=== PATIENT | male | born 1940 | race Caucasian/White ===

== ENCOUNTER 2020-07-25 06:13 | Day surgery (SDC) | payer MEDICARE, BC, SELFPAY ==
[2020-07-25 06:24] VITALS: BP 109/65; PULSE 52; RESP 16; TEMP 36.3; O2SAT 96
[2020-07-25] MEDS: Lactated Ringers 1,000 ML 80 ML IV (06:52)
[2020-07-25] MEDS: ceFAZolin 1 GM/50 ML BAG IVPB (07:24)
[2020-07-25] MEDS: Bupivacaine 0.5% Pres-Free 30 ML VIAL (07:25)
[2020-07-25] MEDS: Dexamethasone 4 MG/ML VIAL (08:00)
--- NOTE | 2020-07-25 08:20 | PDOC.DSDIS_ITS ---
Discharge Plan Disposition Patient Disposition: HOME Condition: Good Discharge Details Reason For Visit: arthrodesis left 2nd toe Attending Provider: Rubio Hebert Primary Care Provider: Chato Charles [place] Meds and New Rx's Prescriptions: New hydrocodone-acetaminophen [[place]] 5-325 mg tablet 1 tab PO Q6H PRN (Reason: pain) Qty: 7 RF: 0 ibuprofen 600 mg tablet 600 mg PO Q6H PRN (Reason: pain and inflamation) Qty: 40 RF: 1 Continued losartan 50 MG tablet 50 mg PO QAM RF: 0 aspirin [Aspir-81] 81 MG tablet,delayed release (DR/EC) 81 mg PO DAILY RF: 0 levothyroxine 100 MCG tablet 100 mcg PO DAILY@0730 RF: 0 ibuprofen 200 MG tablet 200 mg PO DAILY RF: 0 omeprazole 20 MG capsule,delayed release(DR/EC) 20 mg PO DAILY@0730 RF: 0 oxybutynin chloride 5 MG tablet 5 mg PO DAILY RF: 0 multivitamin 1 EACH capsule 1 ea PO DAILY RF: 0 atenolol [Tenormin] 50 MG tablet 50 mg PO DAILY RF: 0 Discharge Instructions Activity:: Activity as Tolerated Remove Dressings/Wound Care:: Do Not Remove Shower/Bathe:: Cover Diet:: Normal Diet Discharge Orders Discharge Orders: Discharge Order (Routine); Ordered 07/25/20 Ordered By: Rubio Hebert DS: Diagnosis Discharge Diagnosis (1) Other hammer toe(s) (acquired), left foot: Status: Acute
--- NOTE | 2020-07-25 08:27 | W.PM.OP ---
Date of service: 07/25/20 Time of Service: 08:28 Operative Note Operative Note DATE OF PROCEDURE: 07/25/20 PRE-OP DIAGNOSIS: hammertoe left 2nd POST-OP DIAGNOSIS: same PROCEDURE: arthrodesis left 2nd toe SURGEON: Rubio Hebert ANESTHESIA: local ESTIMATED BLOOD LOSS: 1 PATHOLOGY: none sent COMPLICATIONS: None Patient was transported to: same day Patient's condition: stable Implants: 0.062 k-wire Indications: 80-year-old male with pain associated with a left second hammertoe that has not responded well to nonoperative treatments. Pain is experienced daily interfering with shoe gear and ambulation. He is being brought to the OR for surgical repair of his left second hammertoe. He understands risk and complications of surgery pertaining to pain, scarring, infection, recurrence of deformity, shortening of the digit. Nonunion, malunion, delayed union the potential to remove the hardware. No promises made to final outcome of surgery. Informed consents been obtained. Procedure Description: Hwang brought to the operative suite placed in the supine position with the left foot prepped and draped in the usual sterile podiatric fashion. Timeout was performed by protocol. Attention was directed to the left foot, second toe. The second toe was anesthetized with 8 cc of a 50: 50 mixture 1% lidocaine with epinephrine, 0.5% Marcaine plain. Attention was directed to the distal interphalangeal joint with 2 converging semielliptical incisions were placed horizontally over the DIPJ. The skin wedge was removed. Soft tissue mobilization and undermining was performed. With a #15 scalpel a capsulotomy was performed dorsally at the DIPJ level and the medial lateral collateral was released. The extensor tendon was lifted from both sides of the joint. With power instrumentation the articular surface was removed from both sides of the joint. A small wedge was removed from the head of the proximal head of the middle phalanx so as to correct for the transverse plane deformity. Good correction was appreciated. All rough and bony edges were rasped smooth. Copious irrigation was performed. Internal fixation was achieved utilizing a 0.062 K wire. The extensor tendon was repaired with simple interrupted suture 4-0 Vicryl. The skin was repaired with simple interrupted suture of 4-0 nylon. 4 mg dexamethasone phosphate was infused proximally into the second toe. Xeroform gauze fluff compression dressings were applied. Sharp and sponge counts were correct. Westley left the OR with vital signs stable vascular status intact he will be followed by myself in the office next week.
== END 2020-07-25 08:55 | disposition home or self-care (01) ==
PROVIDERS: PCP Internal Medicine; Visit Provider Podiatrist
PROC: (CPT 28285; principal; 2020-07-25 07:30)
DX: M20.42 Other hammer toe(s) (acquired), left foot (principal)
CPT/HCPCS: 28285; J0690; J1100